=== PATIENT | male | born 1965 | race Caucasian/White ===

== ENCOUNTER 2025-03-12 16:10 | Observation (INO) | payer BC, SELFPAY ==
[2025-03-12] VITALS (7 sets, daily range): BP systolic 120–172; BP diastolic 70–98; PULSE 78–94; BMI 30.2; BMI 30.3
[2025-03-12 12:23] LABS: Glucose - Point of Care 289 mg/dl (70-99)
[2025-03-12] MEDS: NSS 1000 IV ×2 (13:18→19:52)
[2025-03-12 13:37] LABS: Hematocrit 44.1 % (39.0-52.0); Hemoglobin 15.1 g/dL (13.0-18.0); Mean Corp Hgb Conc. 34.2 g/dL (33.0-37.0); Mean Corpuscular Volume 84.5 fL (80.0-94.0); Nucleated Red Blood Cells % 0 % (-); Platelet Count 316 10^3/uL (130-400); Red Cell Dist. Width 12.9 % (11.5-14.5)
[2025-03-12 13:56] LABS: Urine Character Clear (Clear)
[2025-03-12 13:57] LABS: Troponin I < 0.012 ng/ml
[2025-03-12 14:00] LABS: ALT (SGPT) 27 U/L (0-50); AST (SGOT) 21 U/L (17-59); Albumin 4.5 g/dl (3.5-5.0); Alkaline Phosphatase 55 U/L (38-126); Blood Urea Nitrogen 21 mg/dl (9-20); Calcium 9.4 mg/dl (8.4-10.2); Carbon Dioxide 26 mmol/L (22-30); Chloride 103 mmol/L (98-107); Estimated Creatinine Clearance > 125 ml/min; Glucose 323 mg/dl (70-99); Potassium 4.0 mmol/L (3.5-5.1); Sodium 137 mmol/L (135-145); Total Protein 7.3 g/dl (6.3-8.2); eGFR > 60.00
--- NOTE | 2025-03-12 15:03 | ED.GENMED ---
History of Present Illness
General
Chief Complaint: Blood Sugar Problem
Source: patient
Exam Limitations: none
Time Seen by Provider: 03/12/25 13:07
History of Present Illness
History of Present Illness:
59-year-old male here for 2 issues. His blood sugars have been out of control for a long long time. Typically runs in the 200s to 400s. He is on metformin 500 twice daily and glipizide 2.5 twice daily. He is not adjusted his medication despite
elevated blood sugars. He has also been getting episodes that will last for a minute he states 10-12 times per day of a disequilibrium feeling. Again it lasts for a minute at most. Is not a syncopal feeling. Today his daughter checked and noted
ketones in his urine by dipstick and presented for evaluation
Past History
Past History
ED Past Medical History: NIDDM and Other (Recent onset diabetes, previous pancreatitis)
ED Past Surgical History: Orthopedic and Other (Plastic surgery/deviated septal surgery)
Review of Systems
Review of Systems
All Other Systems: Not applicable
Respiratory: Reports no symptoms
Cardiac: Reports no symptoms
Neurological: Denies headache, weakness or numbness
Phy Exam
Physical Exam
Physical Exam:
GENERAL: Alert and oriented in no apparent distress
EYE: Orbits normal.
NECK: Supple, no carotid bruit. To nose normal. Cranial nerves II through XII intact. Speech normal. Nonfocal.
ENT: Pharynx without erythema
CARDIAC: Regular rate and rhythm without any obvious murmurs.
LUNGS: Clear breath sounds,normal
ABDOMEN: Soft, without focal tenderness or distention
NEUROLOGICAL: Alert and oriented , cranial nerves II through XII intact.
SKIN: Warm and dry, no rash or lesion, no discoloration, skin intact.
MUSCULOSKELETAL: No edema,no deformity.Good color
PSYCH: Normal and appropriate interaction.
Course
Orders/Labs/Results
Orders:
Orders
03/12/25 13:14
Electrocardiogram (*1) Stat
Reason for Study: Other
Other Reason for Exam: Diabetes
CT Head W/o Iv Contrast Urgent
Comment:
Reason For Exam: Recurrent episodes of disequilibrium
EKG- Treatment ONCE
0.9% Sodium Chloride 1000 ml [Nss] 1,000 ml IV BOLUS
03/12/25 13:18
B-Hydroxybutyrate Urgent
Complete Blood Count/With Diff Urgent
Comprehensive Metabolic Panel Urgent
Troponin I Urgent
Urinalysis Reflex To Culture Urgent
Date Specimen was Collected: 03/12/25
Time Specimen was Collected: 13:15
03/12/25 Dinner
2000 calorie (17 carb) Diabetic
At Your Request: Full Participation
Does patient need a safe tray?: No
03/12/25 15:51
Admit/Transfer Patient As Directed
Co-Sign Provider:
Level of Care: Observation services
Assign to:: Medical/Surgical
Physician / Group: Troy Guthrie
Diagnosis: Uncontrolled Diabetes
PRN Pain Medication Management As Directed
May give lesser potent ordered pain med per pt: Yes
preference::
Protocol:: Medication orders for pain may be administered in a
manner that supports deferring to patient preference
when the pt is:
- Requesting an ordered lesser potent pain medication.
Least to most potent pain medications are defined
as: acetaminophen < NSAID < tramadol < opioids
(morphine, oxycodone, hydromorphone).
- Requesting a lesser dose of the same medication IF
ORDERED.
- Requesting a less intrusive route of administration
if both routes are prescribed by the provider (PO <
IV).
03/12/25 15:53
Code Status As Directed
Resuscitation Status: Full Code
03/12/25 19:26
Acetaminophen [Tylenol] 650 mg PO Q4HPRN PRN
Dextrose 50%-Water [Dextrose 50% Syringe] 12.5 grams IV [id number] PRN
Enoxaparin Sodium [Lovenox] 40 mg SC QPM
Glucagon [GlucaGen] 1 mg IM PRN PRN
Insulin Aspart Corrective Mod [Novolog Flexpen-Moderate Resistance] See Protocol SC AC
Insulin Aspart Pen [Novolog Flexpen] 10 units SC AC
Nicotine Polacrilex [Nicorette] 2 mg PO Q2HPRN PRN
03/12/25 19:26
DIETARY IP CONSULT Routine
Reason for Consult: diabetic diet education
Diabetes Education Consult Routine
Reason for Consult: Insulin Instruction
Newly Diagnosed?: No
Diabetes Management by Nurse Practitioner Routine
Consulting Provider: Devora Monk
Was provider already notified?: Yes
Activity As Directed
Activity Level: Out of Bed-Early Mobility
With Assistance
Bedside Glucose Monitoring As Directed
Frequency: AC&HS
Additional Instructions:: Change to q6h if pt on TPN, tube feeding or not eating
I&O [Intake/ Output] As Directed
Frequency: q12h
Orthostatic Vital Signs As Directed
Orthostatic VS Frequency: Daily
Vital Signs As Directed
Frequency: Per unit guidelines
Smoking Cessation Counseling [RESP] Routine
Ot Eval And Treat Routine
Pt Eval And Treat Routine
Treatment: Vestibular Eval
Activity Level: Out of Bed-Early Mobility
DX Deep Vein Thrombosis Video Routine
03/12/25 22:00
Atorvastatin [Lipitor] 80 mg PO HS
Clopidogrel Bisulfate [Plavix] 75 mg PO HS
Docusate Sodium [Colace] 100 mg PO HS
Gabapentin [Neurontin] 300 mg PO TID
Insulin Glargine Lantus [Lantus] 30 units Subcutaneous Insulin Syringe [Syringe-Insulin] 0 unit SC HS
03/13/25 06:00
Basic Metabolic Panel IN AM
Complete Blood Count/No Diff IN AM
Glycohemoglobin (HgbA1c) IN AM
Magnesium IN AM
Vitamin B12 IN AM
03/13/25 08:00
Amlodipine [Norvasc] 10 mg PO DAILY
Aspirin Low Dose EC [Aspir Low (Enteric Coated)] 81 mg PO DAILY
Metoprolol Xl [Toprol Xl] 25 mg PO DAILY
Nicotine [Nicoderm Transdermal] 21 mg TRANSDERM DAILY
Sertraline HCl [Zoloft] 50 mg PO DAILY
Tamsulosin [Flomax] 0.4 mg PO DAILY
cyanocobalamin (vitamin B-12) 1 tablet PO DAILY
Abnormal Lab Results
03/12/25 03/12/25
12:22 13:18
Absolute Neuts (auto) 6.9 H 10^3/uL
(1.4-6.5)
Lymphocytes % 19.8 L %
(20.5-51.1)
BUN 21 H mg/dl
(9-20)
Creatinine 0.5 L mg/dL
(0.7-1.3)
Glucose 323 H mg/dl
(70-99)
Urine Ketones 1+ A
(Negative)
Urine Glucose 4+ A
(Negative)
B-Hydroxybutyrate 0.36 H mmol/L
(0.02-0.27)
POC Glucose 289 H mg/dl
(70-99)
03/12/25 13:18
03/12/25 13:18
Vital Signs
Initial and Last Documented VS:
Initial Vital Signs
Temp Pulse Resp BP Pulse Ox
98.2 F 114 16 172/98 98
03/12/25 12:20 03/12/25 12:20 03/12/25 12:20 03/12/25 12:20 03/12/25 12:20
Last Documented Vital Signs
Temp Pulse Resp BP Pulse Ox
98.2 F 87 19 159/96 95
03/12/25 19:39 03/12/25 16:30 03/12/25 19:39 03/12/25 16:00 03/12/25 19:39
*Radiology
Radiology exam reviewed: radiology read reviewed (Negative CT)
*Pulse Oximetry
SaO2: 95
Oxygen Mode of Delivery: Room air
Patient hypoxic: no
*EKG
Interpreted by ED Provider?: Yes
Interpretation: normal
Comparison EKG: no comparison EKG present
Heart Rate: 88
Rate: normal
Rhythm: sinus
[place]: normal axis
Interval: normal interval
QRS Pattern: normal QRS
Ischemia: no ischemia
*Critical Care Note
Total Time (30-74mins, 75-104mins- exclusive of procedures): Not Applicable
Update Note
Update Note:
Patient with recurring episodes of disequilibrium over time. Not describing syncope or near syncope. I cannot explain these. However they are becoming more progressive over time in addition uncontrolled diabetes with mild ketonuria and mild
elevated hydroxybutyrate although I do not feel he is in DKA. I feels prudent to admit him for further workup and medical management
ED Attending Note
-
Portions of this chart may have been created with voice recognition software.� Occasional wrong word or��sound alike� substitutions may have occurred due to the inherent limitations of voice recognition software.
Discharge Plan
Departure
Patient Disposition: Admit
Date of Disposition: 03/12/25
Time of Disposition: 15:25
Presentation/result/management discussed w/ accepting MD/DO: Hospitalist
Discharge Problem:
Recurrent disequilibrium, Uncontrolled diabetes, Mild ketonuria/elevated beta hydroxybuty
Interventions
Interventions:
*Risk Screen - Suicide Last Done: 03/12/25 12:22
*General Assessment Last Done: 03/12/25 13:07
*Neglect/Abuse Screening Last Done: 03/12/25 12:20
*ED- Fall Risk Assessment Last Done: 03/12/25 13:07
*Nursing Disposition Last Done: 03/12/25 16:28
ED- Neurological Assessment Last Done: 03/12/25 13:07
Discharge Date and Time
Discharge Date/Time: 03/12/25 19:17
--- NOTE | 2025-03-12 15:27 | HPS.HSE ---
Addendum entered and electronically signed by Troy Guthrie MD 03/12/25 17:11:
59-year-old male with a past medical history of uncontrolled diabetes, cigarette nicotine dependency, hypertension, hyperlipidemia, coronary artery disease, peripheral neuropathy, BPH, and alcohol use disorder presents with disequilibrium/dizziness
and hyperglycemia. Patient reports his symptoms have been occurring for the past several months, and worse in the last several weeks. Associated symptoms include polydipsia, polyuria. He is visiting his daughter from [place], and she told
him to go to the ER after she found ketones in his urine. Laboratory workup in the ER negative for diabetic ketoacidosis.
Suspect patient's disequilibrium is multifactorial, from peripheral neuropathy, dehydration from glycosuria.
Treat with IV fluids, continue gabapentin, check B12 levels, consult PT/OT.
Patient reports his last hemoglobin A1c was 10.0 on 02/06/2025.
He is currently on Jardiance and metformin.
He will need insulin administration and treatment.
Start with Lantus 30 units at bedtime, NovoLog 10 units AC 3 times daily, and titrate.
Consult diabetes nurse for education.
Anticipate discharge tomorrow.
I have personally seen and examined the patient, and agree with the plan of care as documented by Harmony Valerio PA-C.
Advance care planning discussed, patient is a full code.
All other issues as outlined by the advanced care practitioner.
Total time spent to see the patient on the floor, examine the patient, review data and lab results, discuss treatment plan with patient, nursing staff around 76 minutes.
Original Note:
Family Physician
-
Family Physician: * NONE
Chief Complaint
-
Elevated blood sugars and urine positive for ketones
History of Present Illness
Patient is a 59 y/o male past medical history of coronary artery disease, diabetes mellitus, diabetic neuropathy, hypertension, depression, prior alcohol abuse and BPH who presents with elevated blood sugars. Patient reports his blood sugars having
been running high for an extended period of time. He reports his fasting sugars is frequently around 150 and this week he had one that over 400. His daughter checked his urinalysis today which was positive for ketones and she brought him to the
emergency department for evaluation. Patient report his Hgba1c was 10.1 at the end of January. He reports polyuria and polydipsia. He complains about significant peripheral neuropathy as well frequent episodes of dizziness / dysequilibrium which have
been ongoing for an extended period of time.
Medical History
Past Medical History
Past Medical History: Reports Other
Additional Past Medical History:
Coronary Artery Disease s/p Stents x 2 (May 2024 most recent)
Diabetes Mellitus, Type II
Diabetic Neuropathy
Essential Hypertension
Hyperlipidemia
Depression
BPH
Alcohol Use Disorder
Past Surgical History: Reports Other
Additional Past Surgical History:
Lumbar Spine Surgery
Deviated Septum Surgery
Social History
Tobacco: Smoker
Alcohol: Former (Sober since October 2024)
Personal:
Family History
Family History: Not pertinent
Allergies / Home Medications
Allergies reflects when Allergies were last updated in [employer].
Home Medications with original date entered in [employer]
Allergy/Medication List:
Allergies
Allergy/AdvReac Type Severity Reaction Status Date / Time
No Known Allergies Allergy Verified 03/12/25 12:22
Home Medications
amlodipine 10 mg tablet 10 mg PO DAILY Blood Pressure 03/12/25
aspirin 81 mg tablet,delayed release 81 mg PO DAILY Heart Disease/Condition 03/12/25
atorvastatin 80 mg tablet 80 mg PO HS High Cholesterol 03/12/25
clopidogrel 75 mg tablet 75 mg PO HS Heart Disease/Condition 03/12/25
cyanocobalamin (vitamin B-12) 1 tab PO DAILY Supplement 03/12/25
docusate sodium 100 mg capsule (Stool Softener) 100 mg PO HS Constipation 03/12/25
empagliflozin 25 mg tablet (Jardiance) 25 mg PO DAILY Diabetes 03/12/25
gabapentin 300 mg capsule 300 mg PO TID Pain 03/12/25
hydrochlorothiazide 25 mg tablet 25 mg PO DAILY Blood Pressure 03/12/25
metformin 500 mg tablet 500 mg PO BID Diabetes 03/12/25
metoprolol succinate 25 mg tablet,extended release 24 hr 25 mg PO DAILY Blood Pressure 03/12/25
potassium 1 tab PO DAILY Supplement 03/12/25
sertraline 50 mg tablet 50 mg PO DAILY Mental Health/Anxiety 03/12/25
tamsulosin 0.4 mg capsule 0.4 mg PO DAILY Urinary Issue 03/12/25
Review of Systems
-
A 12 point ROS was completed and negative except as noted: Yes
Constitutional: Denies Fever or Chills
Respiratory: Denies Cough or Trouble Breathing
Cardiac: Denies Chest Pain or Palpitations
Abdomen/GI: Reports Nausea; Denies Abdominal Pain or Vomiting
Endocrine: Reports Polyuria and Polydipsia
Physical Exam
Vital Signs
Vital Signs
Temp Pulse Resp BP Pulse Ox
98.2 F 81 19 146/86 95
03/12/25 12:20 03/12/25 14:30 03/12/25 14:30 03/12/25 14:00 03/12/25 15:04
Physical Exam
General: Comfortable and Conversant
HEENT: Anicteric and Moist mucous membranes
Respiratory: Clear and Non Labored Respirations
Cardiac: S1/S2 and Regular Rhythm
GI: Soft and Non Tender
Rectal: Deferred by Provider
Musculoskeletal: No Clubbing, No Cyanosis and No Edema
Skin: Warm and Dry
Neuro: Awake, Alert, Oriented and Nonfocal/grossly intact
Psych: Calm
Laboratory Results
-
03/12/25 13:18
03/12/25 13:18
Laboratory Results
Total Bilirubin 0.4 mg/dl (0.2-1.3) 03/12/25 13:18
AST 21 U/L (17-59) 03/12/25 13:18
ALT 27 U/L (0-50) 03/12/25 13:18
Alkaline Phosphatase 55 U/L (38-126) 03/12/25 13:18
Troponin I < 0.012 ng/ml 03/12/25 13:18
Data Reviewed
-
Lab Data: Labs Reviewed by me
Impression/Plan
-
Uncontrolled Diabetes Mellitus
-Reviewed with patient and he is agreeable to starting insulin
-Stop oral medications
-Start Lantus 30 units HS and Novolog 10 units AC
-Consult diabetic education for insulin recommendation and insulin teaching
-Consult dietary for diabetic diet education
Dysequilibrium, suspect related to peripheral/diabetic neuropathy
-Consult PT/OT
-Check orthostatic vital signs
Coronary Artery Disease s/p Stents x 2 (Most Recent May 2024)
-Continue aspirin and Plavix
Diabetic Neuropathy
-Continue gabapentin
Essential Hypertension
-Continue amlodipine, metoprolol
-Hold HCTZ
Hyperlipidemia
-Continue atorvastatin
Depression
-Continue sertraline
BPH
-Continue Flomax
Tobacco Use Disorder with Nicotine Dependence
-Patient reports he is trying to quit
-Start Nicotine Patch
Hx Alcohol Use Disorder - Sober since Oct 2024
DVT proph: Lovenox
Code Status: Full Code
--- NOTE | 2025-03-12 17:11 | W.PN.UPDATE ---
Update Note
Progress Note Update
For billing purposes
[2025-03-12] MEDS: LOVENOX 40 MG SC (20:00)
[2025-03-12 20:11] LABS: Glucose - Point of Care 135 mg/dl (70-99)
[2025-03-12] MEDS: NOVOLOG FLEXPEN 10 UNITS SC (20:14)
[2025-03-12] MEDS: PLAVIX 75 MG PO (21:22)
[2025-03-12] MEDS: COLACE 100 MG PO (21:22)
[2025-03-12] MEDS: NEURONTIN 300 MG PO (21:22)
[2025-03-12] MEDS: LIPITOR 80 MG PO (21:22)
[2025-03-12 22:25] LABS: Glucose - Point of Care 184 mg/dl (70-99)
[2025-03-12] MEDS: NICODERM TRANSDERMAL 21 MG TRANSDERM (22:34)
[2025-03-12] MEDS: LANTUS 0.3 UNITS SC (22:35)
[2025-03-13 03:53] LABS: Glucose - Point of Care 111 mg/dl (70-99)
[2025-03-13 06:00] VITALS: BMI 30.2
[2025-03-13 06:41] LABS: Hematocrit 40.7 % (39.0-52.0); Hemoglobin 14.2 g/dL (13.0-18.0); Mean Corp Hgb Conc. 34.9 g/dL (33.0-37.0); Mean Corpuscular Volume 84.4 fL (80.0-94.0); Platelet Count 266 10^3/uL (130-400); Red Cell Dist. Width 12.8 % (11.5-14.5)
--- NOTE | 2025-03-13 07:09 | PN.DE.MGMTRT ---
Insulin Management
- -
03/13/2025 Diabetes Management Consult
Patient admitted 03/12 c/o elevated blood sugar and intermittent episodes of dysequilibrium. PMH diabetes, HTN, HLD, CAD, peripheral neuropathy, BPH, alcohol use disorder. Prior to admission was taking Jardiance 25 mg daily and metformin 500 mg
BID. Patient reports he had an A1C in January 2025 which was 10%, cr .5, eGFR > 60. A1C ordered.
Patient is awake alert and oriented, able to discuss diabetes care. States he has had diabetes since 2009, sees PA in urgent care in [place] for diabetes care. Last A1C 10% 02/06/2025 per patient; today A1C is 10.5%. No changes were made by
provider. He has a glucose monitor for testing his glucose.
Hospitalist has started lantus 30 units @ HS with novolog 10 units AC with corrective insulin.
Fasting glucose this AM 111. Patient with history of CAD with 2 stents; will restart SGLT 2, Farxiga 10 mg daily. At discharge to resume home med Jardiance 25 mg daily.
Discussed with nurse,
Will follow
Diabetes History
- -
Type of Diabetes: 2
Pre-Admission Diabetes Regimen
03/12/25
13:18
Creatinine 0.5 L
Insulin Pump Settings
IP Diabetes Regimen
03/12/25 03/12/25 03/12/25
12:22 13:18 20:10
Glucose 323 H
POC Glucose 289 H 135 H
03/12/25 03/13/25
22:24 03:52
Glucose
POC Glucose 184 H 111 H
Patient Education
[2025-03-13 07:17] LABS: Blood Urea Nitrogen 17 mg/dl (9-20); Calcium 8.6 mg/dl (8.4-10.2); Carbon Dioxide 22 mmol/L (22-30); Chloride 108 mmol/L (98-107); Estimated Creatinine Clearance > 125 ml/min; Glucose 105 mg/dl (70-99); Magnesium 1.9 mg/dl (1.6-2.3); Potassium 3.5 mmol/L (3.5-5.1); Sodium 140 mmol/L (135-145); eGFR > 60.00
[2025-03-13 07:54] VITALS: BP 136/71
[2025-03-13 07:55] LABS: Glycohemoglobin (HgbA1c) 10.5 % (4.0-5.6)
[2025-03-13 08:03] LABS: Vitamin B12 901 pg/ml (239-931)
[2025-03-13 08:13] LABS: Glucose - Point of Care 107 mg/dl (70-99)
[2025-03-13] MEDS: FLOMAX 0.4 MG PO (08:23)
[2025-03-13] MEDS: NEURONTIN 300 MG PO ×3 (08:23→21:48)
[2025-03-13] MEDS: VITAMIN B1 100 MG PO (08:23)
[2025-03-13] MEDS: VITAMIN B-12 1000 MCG PO (08:23)
[2025-03-13] MEDS: FOLVITE 1 MG PO (08:23)
[2025-03-13] MEDS: TOPROL XL 25 MG PO (08:24)
[2025-03-13] MEDS: ZOLOFT 50 MG PO (08:24)
[2025-03-13] MEDS: ASPIR LOW (ENTERIC COATED) 81 MG PO (08:24)
[2025-03-13] MEDS: NICODERM TRANSDERMAL 21 MG TRANSDERM (08:24)
[2025-03-13] MEDS: NORVASC 10 MG PO (08:24)
[2025-03-13] MEDS: NOVOLOG FLEXPEN 10 UNITS SC ×2 (08:25→11:53)
--- NOTE | 2025-03-13 09:19 | W.PN.HOSP.TC ---
Today's Communication/Plan
-
Discharge tomorrow
Assessment / Plan
Assessment / Plan
HPI: 59-year-old male with a past medical history of uncontrolled diabetes, cigarette nicotine dependency, hypertension, hyperlipidemia, coronary artery disease, peripheral neuropathy, BPH, and alcohol use disorder presents with
disequilibrium/dizziness and hyperglycemia. Patient reports his symptoms have been occurring for the past several months, and worse in the last several weeks. Associated symptoms include polydipsia, polyuria. He is visiting his daughter from
[place], and she told him to go to the ER after she found ketones in his urine. Laboratory workup in the ER negative for diabetic ketoacidosis.
Uncontrolled Diabetes Mellitus
-Hemoglobin A1c 10.5
-Started insulin, will reduce Lantus to 25 units at bedtime, NovoLog to 8 units AC 3 times daily
-Appreciate diabetes nurse practitioner, continue diabetes education
-Ordered Farxiga here, can resume Jardiance, resume metformin as well
-Plan for discharge tomorrow
Dizziness
Dysequilibrium, suspect related to peripheral/diabetic neuropathy
-Dizziness likely due to dehydration from glucosuria
-Orthostatic vital signs negative, seen by PT�independent
-B12 levels normal
Coronary Artery Disease s/p Stents x 2 (Most Recent May 2024)
-Continue aspirin and Plavix
Diabetic Neuropathy
-Continue gabapentin
Essential Hypertension
-Continue amlodipine, metoprolol
-Hold HCTZ -recommend permanently discontinuing upon discharge
-Started on lisinopril 5 mg daily for renal protection
Hyperlipidemia
-Continue atorvastatin
Depression
-Continue sertraline
BPH
-Continue Flomax
Tobacco Use Disorder with Nicotine Dependence
-Patient reports he is trying to quit
-Started Nicotine Patch
Obesity due to excess calories
-Affects all aspects of care
Hx Alcohol Use Disorder - Sober since Oct 2024
DVT proph: Lovenox
Code Status: Full Code
Total time spent to see the patient on the floor, examine the patient, review data and lab results, discuss treatment plan with patient, nursing staff around 50 minutes.
Physical Exam
General: Obese, no acute distress
HEENT: Normocephalic, Atraumatic, EOMI, MMM
Respiratory: Clear to Auscultation bilaterally
Cardiac: Normal S1/S2, Regular Rate and Rhythm
GI: Soft, Nontender, Nondistended, Normal Bowel Sounds
Extremities: No Clubbing, Cyanosis, or Edema
Neuro: Nonfocal/Grossly Intact
Psych: Calm, Cooperative
Derm: No Visible lesions
Anticipated Discharge: Within 24 hours
Subjective/Interval History
-
Date of Service: March 13, 2025
Patient reports feeling dramatically better. His disequilibrium/dizziness is 95% resolved.
Denies chest pain, denies shortness of breath. No fever, no vomiting.
Objective Data
-
Labs:
Laboratory Results
03/13/25
06:03
WBC 7.9
Hgb 14.2
Hct 40.7
Plt Count 266
Sodium 140
Potassium 3.5
Chloride 108 H
Carbon Dioxide 22
BUN 17
Creatinine 0.5 L
Glucose 105 H
Calcium 8.6
Vital Signs:
Vital Signs
Temp Pulse Resp BP Pulse Ox
98.3 F 86 16 136/71 97
03/13/25 07:54 03/13/25 08:24 03/13/25 07:54 03/13/25 08:24 03/13/25 07:54
I&O
03/12/25 03/13/25 03/14/25
06:59 06:59 06:59
Intake Total 480 / 480 480 / 480
Balance 480 / 480 480 / 480
[2025-03-13 10:26] VITALS: BP 155/99; PULSE 93; O2SAT 97
[2025-03-13 10:28] VITALS: BP 155/99; PULSE 84; O2SAT 97
--- NOTE | 2025-03-13 10:31 | PTOTSP ---
pt currently requires supervision to no assistance to complete simple ADLs, functional transfers, ambulation. pt reports feeling much better since being admitted to the hospital and has had no dizziness since starting insulin. no acute OT needs
identified at this time, will sign off.
[2025-03-13 11:27] VITALS: BP 146/84
[2025-03-13 11:32] LABS: Glucose - Point of Care 113 mg/dl (70-99)
[2025-03-13] MEDS: FARXIGA 10 MG PO (11:36)
[2025-03-13] MEDS: ZESTRIL 5 MG PO (11:37)
--- NOTE | 2025-03-13 12:11 | PTCARENOTE ---
03/13/2025 DIABETES EDUCATION CONSULT
I met with Candelario to review diabetes management.
I educated on physiology of T2D, organ damage, managing with medications, monitoring BG, nutrition, activity, sleep and managing stress. He has chronic pancreatitis from past alcohol abuse, was also on Ozempic which exacerbated his pancreatitis. I
reinforced signs of hyperglycemia, hypoglycemia and hypoglycemia protocol; BS parameters and recommended HbA1c goals, medic alert bracelet. Written material provided. Candelario lives in [place], has CM from [facility] [place] in contact with him, gets 500 calorie
portion control meals through insurance benefits.
He has a glucometer at home, glucose in the 250's. Discussed CGM and provided brochure if he is interested, can discuss with home PCP. 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
I educated and demonstrated on insulin injection technique, timing, and storage. Discussed long and short acting insulin; onset/peak/duration, and encouraged Candelario to administer his own injections with RN supervision while admitted. Discussed
normal target glucose ranges and a monitoring schedule 15 minutes before each meal when prescribed Novolog, and preprandial AM and/or bedtime as recommended by MD.
Encouraged patient to follow up with his PCP for post d/c appointment and to monitor medication and blood glucose levels. Patient verbalized understanding.
[2025-03-13 15:24] VITALS: BP 139/74
[2025-03-13 16:44] LABS: Glucose - Point of Care 67 mg/dl (70-99)
[2025-03-13] MEDS: NOVOLOG FLEXPEN SC (16:53)
[2025-03-13 17:00] LABS: Glucose - Point of Care 112 mg/dl (70-99)
[2025-03-13] MEDS: LOVENOX 40 MG SC (17:00)
--- NOTE | 2025-03-13 17:13 | CM ---
Met with patient to obtain information for assessment. Patient stated that he lives with his in a two story, single home, with four steps to enter. He is independent with dressing and bathing as well as all other ADLs, and personal care. He can
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 He drives and can get to his appointments and does all of his own shopping. Patient has a glucometer. He has never had VN services. He has not been to a SNF.
Patient has a prescription plan and uses, [facility] in [place] for all his medications.
Patient's PCP is, not in area.
Plan: Case management will continue to follow and assist with discharge planning. Home when stable.
[2025-03-13 18:58] LABS: Glucose - Point of Care 196 mg/dl (70-99)
[2025-03-13 21:29] LABS: Glucose - Point of Care 125 mg/dl (70-99)
[2025-03-13] MEDS: COLACE PO (21:47)
[2025-03-13] MEDS: TYLENOL 650 MG PO (21:48)
[2025-03-13] MEDS: LIPITOR 80 MG PO (21:48)
[2025-03-13] MEDS: PLAVIX 75 MG PO (21:48)
[2025-03-13] MEDS: LANTUS 0.24 UNITS SC (22:24)
[2025-03-13 23:16] VITALS: BP 132/76
[2025-03-14 03:24] LABS: Glucose - Point of Care 122 mg/dl (70-99)
[2025-03-14 07:51] LABS: Glucose - Point of Care 145 mg/dl (70-99)
[2025-03-14] MEDS: NOVOLOG FLEXPEN 7 UNITS SC (07:51)
[2025-03-14 07:55] VITALS: BP 143/71
[2025-03-14] MEDS: NORVASC 10 MG PO (08:00)
[2025-03-14] MEDS: NICODERM TRANSDERMAL 21 MG TRANSDERM (08:00)
[2025-03-14] MEDS: FLOMAX 0.4 MG PO (08:02)
[2025-03-14] MEDS: ZOLOFT 50 MG PO (08:02)
[2025-03-14] MEDS: NEURONTIN 300 MG PO (08:02)
[2025-03-14] MEDS: VITAMIN B1 100 MG PO (08:02)
[2025-03-14] MEDS: TOPROL XL 25 MG PO (08:02)
[2025-03-14] MEDS: VITAMIN B-12 1000 MCG PO (08:02)
[2025-03-14] MEDS: ASPIR LOW (ENTERIC COATED) 81 MG PO (08:02)
[2025-03-14] MEDS: FOLVITE 1 MG PO (08:02)
[2025-03-14] MEDS: FARXIGA 10 MG PO (08:02)
[2025-03-14] MEDS: ZESTRIL 5 MG PO (08:02)
[2025-03-14 08:10] LABS: Blood Urea Nitrogen 10 mg/dl (9-20); Calcium 9.0 mg/dl (8.4-10.2); Carbon Dioxide 21 mmol/L (22-30); Chloride 107 mmol/L (98-107); Estimated Creatinine Clearance > 125 ml/min; Glucose 110 mg/dl (70-99); Magnesium 1.9 mg/dl (1.6-2.3); Potassium 4.0 mmol/L (3.5-5.1); Sodium 138 mmol/L (135-145); eGFR > 60.00
--- NOTE | 2025-03-14 09:02 | W.PN.HOSP.TC ---
Today's Communication/Plan
-
Discharge today
Assessment / Plan
Assessment / Plan
HPI: 59-year-old male with a past medical history of uncontrolled diabetes, cigarette nicotine dependency, hypertension, hyperlipidemia, coronary artery disease, peripheral neuropathy, BPH, and alcohol use disorder presents with
disequilibrium/dizziness and hyperglycemia. Patient reports his symptoms have been occurring for the past several months, and worse in the last several weeks. Associated symptoms include polydipsia, polyuria. He is visiting his daughter from
[place], and she told him to go to the ER after she found ketones in his urine. Laboratory workup in the ER negative for diabetic ketoacidosis.
Uncontrolled Diabetes Mellitus
-Hemoglobin A1c 10.5, insulin teaching provided
-Started insulin, will discharge patient on Lantus to 25 units at bedtime, NovoLog to 8 units AC 3 times daily
-Appreciate diabetes nurse practitioner, continue diabetes education
-Ordered Farxiga here, can resume Jardiance, resume metformin as well
- Medically stable for discharge, patient instructed to establish care with a PCP in [place] as soon as possible
Dizziness
Dysequilibrium, suspect related to peripheral/diabetic neuropathy
-Dizziness likely due to dehydration from glucosuria
-Orthostatic vital signs negative, seen by PT�independent
-Resolved, B12 levels normal
Coronary Artery Disease s/p Stents x 2 (Most Recent May 2024)
-Continue aspirin and Plavix
Diabetic Neuropathy
-Continue gabapentin
Essential Hypertension
-Continue amlodipine, metoprolol
-Hold HCTZ -recommend permanently discontinuing upon discharge
-Started on lisinopril 10 mg daily for renal protection
Hyperlipidemia
-Continue atorvastatin
Depression
-Continue sertraline
BPH
-Continue Flomax
Tobacco Use Disorder with Nicotine Dependence
-Patient reports he is trying to quit
-Started Nicotine Patch
Obesity due to excess calories
-Affects all aspects of care
Hx Alcohol Use Disorder - Sober since Oct 2024
DVT proph: Davidx
Code Status: Full Code
Physical Exam
General: Obese, no acute distress
HEENT: Normocephalic, Atraumatic, EOMI, MMM
Respiratory: Clear to Auscultation bilaterally
Cardiac: Normal S1/S2, Regular Rate and Rhythm
GI: Soft, Nontender, Nondistended, Normal Bowel Sounds
Extremities: No Clubbing, Cyanosis, or Edema
Neuro: Nonfocal/Grossly Intact
Psych: Calm, Cooperative
Derm: No Visible lesions
Anticipated Discharge: Today
Subjective/Interval History
-
Date of Service: March 14, 2025
Patient witnessed ambulating in his room. Reports no recurrence of lightheadedness or dizziness. No fever, no vomiting. He feels well, and is eager for discharge today.
Objective Data
-
Labs:
Laboratory Results
03/14/25
07:11
Sodium 138
Potassium 4.0
Chloride 107
Carbon Dioxide 21 L
BUN 10
Creatinine 0.4 L
Glucose 110 H
Calcium 9.0
Vital Signs:
Vital Signs
Temp Pulse Resp BP Pulse Ox
98.1 F 80 16 143/71 99
03/14/25 07:55 03/14/25 08:02 03/14/25 07:55 03/14/25 08:00 03/14/25 07:55
I&O
03/13/25 03/14/25 03/15/25
06:59 06:59 06:59
Intake Total 480 / 480 1680 / 1680
Balance 480 / 480 1680 / 1680
--- NOTE | 2025-03-14 10:32 | W.DCSUMMARY ---
Discharge Summary
Discharge Data
Date of Admission: 03/12/25
Date of Discharge: 03/14/25
-
Pending Results: No
Hospital Course
Uncontrolled type 2 diabetes
Dizziness from dehydration
Disequilibrium
Coronary artery disease status post stent placement
Diabetic neuropathy
Essential hypertension
Hyperlipidemia
Depression
Benign prostatic hypertrophy
Cigarette nicotine dependency
Obesity due to excess calories
Hospital course:
59-year-old male with a past medical history of uncontrolled type 2 diabetes, CAD, hypertension, hyperlipidemia, BPH, depression, cigarette nicotine dependency, and obesity who presented with dizziness and disequilibrium. Patient's blood sugar was
high, he was not in diabetic ketoacidosis. His hemoglobin A1c is 10.5. Suspect his dizziness is due to dehydration from the glycosuria. Patient also has disequilibrium, likely from peripheral neuropathy. He was treated with IV fluids, his
dizziness resolved. Orthostatic vital signs were negative, vitamin B12 levels were normal.
Patient's hydrochlorothiazide was permanently discontinued. He was started on lisinopril 10 mg daily for his essential hypertension as well as for renal protection. He is continued on amlodipine 10 mg daily, metoprolol succinate 25 mg daily.
Patient was seen in conjunction with the diabetes nurse practitioner. His hemoglobin A1c is 10.5. He needs insulin administration. He was taught how to self administer insulin injections. Patient is medically stable for discharge. He is to take
Lantus 25 units at bedtime, NovoLog 8 units AC 3 times daily, as well as his metformin and Jardiance. Patient has been instructed to establish care with, and follow-up with his PCP as soon as he returns to his home in [place].
Disposition: Home self-care
Discharge planning: Required 39 minutes
Discharge Plan
-
Patient Disposition: Home (Routine Discharge)
Discharge Diagnosis/Procedures: Uncontrolled type 2 diabetes, peripheral neuropathy, dizziness
Condition: Good
Diet: Diabetic, Carb Controlled
Activity: As tolerated
Driving Restrictions: As prior to admission
Activity Restrictions/Additional Instructions:
Please take your medications and insulin regimen as directed.
Please establish care with and follow-up with a primary care provider as soon as you return to [place].
Referrals:
NONE,* [Family Provider, Internal Medicine]
Prescriptions:
New
lisinopril 10 mg tablet
10 mg PO DAILY Qty: 30 0RF
insulin aspart U-100 [Novolog FlexPen U-100 Insulin] 100 unit/mL (3 mL) insulin pen
8 unit SC TID Qty: 15 0RF
insulin glargine [Lantus Solostar U-100 Insulin] 100 unit/mL (3 mL) insulin pen
25 unit SC QPM Qty: 15 0RF
(DME) pen needle, diabetic 29 gauge needle
See Rx Instructions .Route Qty: 100 1RF
Rx Instructions:
As directed
Continued
metformin 500 mg Tablet
500 mg PO BID
atorvastatin 80 mg Tablet
80 mg PO HS
clopidogrel 75 mg Tablet
75 mg PO HS
aspirin 81 mg Tablet,Delayed Release (Dr/Ec)
81 mg PO DAILY
tamsulosin 0.4 mg Capsule
0.4 mg PO DAILY
amlodipine 10 mg Tablet
10 mg PO DAILY
docusate sodium [Stool Softener] 100 mg Capsule
100 mg PO HS
gabapentin 300 mg Capsule
300 mg PO TID
metoprolol succinate 25 mg Tablet Extended Release 24 Hr
25 mg PO DAILY
sertraline 50 mg Tablet
50 mg PO DAILY
Jardiance 25 mg Tablet
25 mg PO DAILY
cyanocobalamin (vitamin B-12)
1 tab PO DAILY
potassium
1 tab PO DAILY
Discontinued
hydrochlorothiazide 25 mg Tablet
25 mg PO DAILY
Discharge Orders:
Discharge Patient (As Directed); Ordered 03/14/25
Ordered By: Troy Guthrie
Discharge Date and Time
Discharge Date/Time: 03/14/25 13:29
Print Language: SYRIAC
== END 2025-03-14 13:29 | disposition home or self-care (01) ==
LOC: 4 EAST ACU 16:10
PROVIDERS: Physician Assistant Medical; ADMITTING PHYSICIAN Family Medicine; EMERGENCY PHYSICIAN Emergency Medicine
DX: E11.65 Type 2 diabetes mellitus with hyperglycemia (principal); F17.210 Nicotine dependence, cigarettes, uncomplicated; I10 Essential (primary) hypertension; I25.10 Atherosclerotic heart disease of native coronary artery without angina pectoris; E11.42 Type 2 diabetes mellitus with diabetic polyneuropathy; E78.5 Hyperlipidemia, unspecified; E66.09 Other obesity due to excess calories; N40.0 Benign prostatic hyperplasia without lower urinary tract symptoms; E86.0 Dehydration; F32.A Depression, unspecified; Z68.30 Body mass index [BMI] 30.0-30.9, adult; Z79.02 Long term (current) use of antithrombotics/antiplatelets; Z79.82 Long term (current) use of aspirin; Z79.84 Long term (current) use of oral hypoglycemic drugs; Z79.899 Other long term (current) drug therapy; Z95.5 Presence of coronary angioplasty implant and graft
CPT/HCPCS: 70450; 80048; 80053; 81003; 82010; 82607; 82962; 83036; 83735; 84100; 84484; 85025; 85027; 93005; 96360; 97162; 97166; 99285; 99406; G0378